=== PATIENT | female | born 1940 | race Caucasian/White ===

== ENCOUNTER 2017-02-10 10:44 | Inpatient (IN) ==
[2017-02-10] MEDS ORDERED: *HR* FentaNYL (PF) 100 MCG/2 ML VIAL IVP ONE (11:19)
[2017-02-10] MEDS ORDERED: Ondansetron 4 MG/2 ML VIAL IVP ONE (11:23)
--- NOTE | 2017-02-10 11:24 | Emergency Department Note ---
Disposition Clinical Impression: Hematoma Disposition: Admitted As Inpatient Condition: Good Extremity Problem HPI - General Chief complaint: ED Extremity Problem,Nontraumatic Stated complaint: LUE Pain / Swelling from UC Time Seen by Provider: 02/10/17 10:49 Source: patient, family Limitations: no limitations Nursing Notes Reviewed: Yes Vital Signs Reviewed: Yes - History of Present Illness HPI Narrative: 76-year-old female presents to the emergency department with a chief complaint of swelling and pain in the left upper extremity. Earlier today she had a blood draw for general blood work. She noticed her left arm with swelling in the biceps area became very painful. She is on Plavix due to heart disease. She had shoulder replacement surgery on that side about a year ago. She states her entire bicep till swollen and is tender. She denies any numbness or tingling distally. She denies any weakness. She states her blood pressure is very high but not take her blood pressure medication this morning. She denies any pain in the neck. She denies any other complaints or concerns. Pain Scale: 10 - Related Data Home Medications Medication Instructions Recorded Confirmed Ascorbate Calcium [Vitamin C] 1,000 mg PO DAILY 09/02/16 02/10/17 Aspirin 81 mg PO DAILY 09/02/16 02/10/17 Atorvastatin Calcium [Lipitor] 80 mg PO HS 09/02/16 02/10/17 Cholecalciferol (D-3) [Vitamin D] 1,000 unit PO DAILY 09/02/16 02/10/17 Clopidogrel [Plavix] 75 mg PO DAILY 09/02/16 02/10/17 Lisinopril [Zestril] 40 mg PO DAILY 09/02/16 02/10/17 Metoprolol [Lopressor] 50 mg PO DAILY 09/02/16 02/10/17 Vitamin E Acid Succinate [Vitamin 400 units PO DAILY 09/02/16 02/10/17 E] Allergies Allergy/AdvReac Type Severity Reaction Status Date / Time propoxyphene Allergy Vomiting Verified 02/10/17 11:25 [From Mayra] fenofibrate AdvReac See Verified 02/10/17 11:25 Comments All systems ED: reviewed and negative except as stated. Cardiovascular: Denies: chest pain Respiratory: Denies: dyspnea Neurological: Denies: weakness, numbness Past Medical History - Past Medical History Attestation: Yes The following information was validated with the patient. Medical history: Reports: cancer, hyperlipidemia, hypertension, myocardial infarction, other Surgical history: Reports: other Psychiatric history: Reports: no psych history - Social History Smoking Status: Unknown if ever smoked Smokeless Tobacco Status: No Alcohol use: Reports: occasionally Drug use: Reports: none Physical Exam General: Appears well, alert and oriented x 3 Cardiovascular: Regular rate and rhythm. Respiratory: Breath sounds clear bilaterally. Neck: No swelling of the neck Neuro: 5/5 strength at the elbow and wrist bilaterally. Normal managing principal strength bilaterally Vascular: She has strong, 2+ radial pulses bilaterally with normal capillary refill. She has normal color and temperature bilaterally in the hands and arm. Musculoskeletal: There is diffuse tense swelling from the anterior AC fossa three quarters [address] way to the left shoulder. It is very tight and tender. There is no swelling into the tricep. This is asymmetric on the other side. She has a small vena puncture scooter in the fossa. There is no swelling distally. There is no circumferential swelling. Skin: No lesions. No diaphoresis. Normal turgor. Normal color - General Limitations: no limitations General appearance: alert, in no apparent distress Course Course Narrative: At this time appears the patient is bleeding from her vena puncture into the biceps muscle and surrounding tissue. There is no sign of compartment syndrome at this time. She is neurovascularly intact. I spoke with the orthopedic surgeon, Dr. Weeks who recommends pressure to the area, admission for neuro checks. Patient is on Plavix obviously contributing to the ongoing bleeding into the tissue. We will control her pain as well as provide her home medications for blood pressure because she had not taken this morning. Her blood pressure was quite elevated but I suspected decrease with her medications and pain control. Vital Signs Temperature 97.7 F 02/10/17 10:48 Pulse Rate 111 02/10/17 10:48 Respiratory Rate 18 02/10/17 10:48 Blood Pressure 224/128 02/10/17 10:48 O2 Sat by Pulse Oximetry 97 02/10/17 10:48 Temperature 98.3 F 02/11/17 10:43 Pulse Rate 65 02/11/17 10:43 Respiratory Rate 14 02/11/17 10:43 Blood Pressure 98/57 02/11/17 10:43 O2 Sat by Pulse Oximetry 96 02/11/17 10:43 Oxygen Delivery Oxygen Delivery Room Air Extremity Problem, Nontraumati - Lab Data Result diagrams: 02/11/17 04:59 Attestation Statement - Attestation Attestation: I examined this patient and my medical decision-making was reviewed with the TELEMEDICINE PHYSICIAN/PA/Advanced Practice Nurse/Resident Physician. I agree with the documented findings, disposition and treatment plan as described except to the extent set forth below. 76-year-old female with history of coronary disease and coronary stents currently on Plavix presents to the ED due to traumatic venipuncture in the left arm. She was at an outlying phlebotomy site when she apparently had infiltration of the antecubital vein prompting evolution of a large and very tender hematoma. She was seen by a physician at the site and sent to the ED for possible compartment syndrome. She has. Faint tingling of the hand but no weakness. No pain distal to the hematoma. Denies any other complaints. Patient appears relatively comfortable she is hypertensive. Abdomen soft nontender chest clear bilaterally. No hematoma in the axilla. Left upper extremity there is a large and fairly tender hematoma over the anterior biceps region. The skin is tense to palpation. She does have range of motion of the elbow and is able to flex her arm without severe pain. Passive extension of the arm does increase some pain. Distal pulses of the hand are brisk. Capillary refill less than 2 seconds. Normal sensation throughout all dermatomes of the hand. She was seen in the ED by orthopedics who recommended observation with frequent neuro checks. Comparison of is unlikely in the upper arm however, she has had reconstruction of her shoulder which would put her at higher risk.
[2017-02-10] MEDS: Lisinopril 20 MG TABLET PO SCH (11:49)
[2017-02-10] MEDS ORDERED: Naloxone 0.4 MG/ML INJ IVP PRN (13:09)
--- NOTE | 2017-02-10 13:16 | Internal Med History&Physical ---
Date of Encounter: 02/10/17 Time of Encounter: 12:30 Assessment and Plan (1) Hematoma Current visit: Yes Status: Acute Hematoma of the left upper extremity related to peripheral venipuncture. Orthopedics has been consulted due to the severity of the hematoma. We will observe patient in the hospital and monitor for neurovascular compromise. Monitor blood counts. (2) Essential hypertension Current visit: Yes Status: Acute Uncontrolled. Resume home medications. Monitor blood pressure closely (3) Coronary artery disease Current visit: Yes Status: Chronic Continue home medications for this but will hold Plavix due to acute bleeding. Patient's last stent was about 15 years back Qualifiers: Coronary Disease-Associated Artery/Lesion type: [place] artery [place] vs. transplanted heart: [place] heart Associated angina: without angina Qualified Code(s): I25.10 - Atherosclerotic heart disease of [place] coronary artery without angina pectoris Internal Medicine - H&P: HPI Chief complaint: Left upper extremity swelling after venipuncture Admitted From: Emergency Dept Plans for Post Hospital Care: Home History of present illness: Ms. Smith is a 76 year old female patient with history of essential hypertension, coronary artery disease status post cardiac stents about 15 years back who takes aspirin and Plavix presented to the ER with complaints of swelling and redness following venipuncture off her left arm that was done for regular blood work. Soon after the procedure was done, she was developing significant swelling in the left arm above the elbow. She denies any numbness or weakness in her left upper extremity. She does have pain in this region as result of the swelling. She has never had episodes of excessive bleeding or bruising before. Past Med Surg Social Fam HX - Past Medical History Attestation: Yes The following information was validated with the patient. Source: patient Medical history: cancer, hyperlipidemia, hypertension, myocardial infarction, other Psychiatric history: no psych history - Past Surgical History Surgical History: other - Social History Smoking Status: Unknown if ever smoked Smokeless Tobacco Status: No Alcohol use: occasionally Drug use: none - Additional Family History Additional family history: Reviewed and found to be noncontributory at this time Internal Medicine - H&P: Meds Ascorbate Calcium [Vitamin C] 1,000 mg PO DAILY 09/02/16 [History] Aspirin 81 mg PO DAILY 09/02/16 [History] Atorvastatin Calcium [Lipitor] 80 mg PO HS 09/02/16 [History] Cholecalciferol (D-3) [Vitamin D] 1,000 unit PO DAILY 09/02/16 [History] Clopidogrel [Plavix] 75 mg PO DAILY 09/02/16 [History] Lisinopril [Zestril] 40 mg PO DAILY 09/02/16 [History] Metoprolol [Lopressor] 50 mg PO DAILY 09/02/16 [History] Vitamin E Acid Succinate [Vitamin E] 400 units PO DAILY 09/02/16 [History] Allergies propoxyphene [From Darvocet-N] Allergy (Verified 02/10/17 11:25) Vomiting fenofibrate Adverse Reaction (Verified 02/10/17 11:25) See Comments bruising All Systems PM: A 10-system review of systems was performed and is negative for pertinent findings except as documented above in the HPI. - Constitutional Constitutional: no chills, no fever(s), no night sweats - EENT Eyes: no change in vision, no discharge, no pain, no photophobia Ears: no ear discharge, no ear pain, no tinnitus Nose, mouth and throat: no dysphagia, no nasal discharge, no neck pain, no sore throat - Cardiovascular Cardiovascular ROS IM: no chest pain, no diaphoresis, no dyspnea, no lightheadedness, no palpitations, no syncope - Respiratory Respiratory: no cough, no dyspnea, no wheezing, no excessive phlegm production - Gastrointestinal Gastrointestinal: no abdominal pain, no diarrhea, no hematemesis, no hematochezia, no melena, no nausea, no vomiting - Genitourinary Genitourinary: no change in urinary stream, no dysuria, no flank pain, no hematuria - Musculoskeletal Musculoskeletal ROS IM: no numbness, no tingling - Integumentary Integumentary IM: no rash, no unusual bruising - Neurological Neurological ROS: no confusion, no convulsions, no focal weakness, no numbness, no tingling, no tremor(s) - Hematologic/Lymphatic Hematologic/Lymphatic: no easy bruising Additional comments: Swelling and bruising of the left upper extremity following venipuncture today - Constitutional Vitals: Temp Pulse Resp BP Pulse Ox 97.7 F 82 16 165/102 97 02/10/17 10:48 02/10/17 12:18 02/10/17 12:59 02/10/17 12:59 02/10/17 10:48 General appearance: Present: cooperative, mild distress, A&O X 3, answers questions appropriately - Neck Neck exam general surgery: Present: supple, trachea midline. Absent: lymphadenopathy - Respiratory Respiratory exam: Present: CTAB. Absent: accessory muscle use, rales, rhonchi, wheezes - Cardiovascular Cardiovascular exam: Present: RRR, +S1, +S2. Absent: diastolic murmur, gallop, rubs, systolic murmur - GI/Abdominal GI/Abdominal exam: Present: normal bowel sounds, soft, no peritoneal signs. Absent: distended, tenderness - Extremities Exam Extremities exam: Present: warm, radial pulses palpable and symetrical. Absent : calf tenderness, cyanotic, pedal edema Additional comments: Swelling of the left upper extremity just above the elbow. Currently with bandage with compressive bandage. She has good strength and sensation in the left upper extremity. Good pulses. - Neurological Exam Neurological exam: Present: alert, oriented X3, no focal deficits, strengths equal and symetr throughout. Absent: facial droop, speech deficit - Skin Skin exam: Present: dry, intact - Attending Attestation This document has been at least partially created by [employer] recognition technology by Dr. Valdez. Errors in grammar, wording or other phrases may exist. If errors are found after the documentation is signed, they will be addressed individually in the addendum section of this document when appropriate.
--- NOTE | 2017-02-10 13:26 | Orthopedic Consult Note ---
Date of Encounter: 02/10/17 Time of Encounter: 13:10 Assessment and Plan (1) Hematoma Current Visit: Yes Status: Acute Continue with pressure dressing. Apply warm compresses to antecubital fossa. Elevate extremity. ROM as tolerated. Continue to monitor with neuro checks. Dr. Weeks will re-evaluation tomorrow. History of Present Illness Chief complaint: left arm swelling HPI: Ms. Smith is a 76 year old female who presented to the ER today for left upper arm swelling and pain that started after a routine blood draw this morning. She is on plavix and aspirin. The pain has been increasing since then and described as throbbing in elbow radiating up towards shoulder. Denies any numbness or tingling in the extremity. Denies any chest pain, SOB, fevers. Denies any previous trouble with bleeding or bruising. She did admit that she did not take her blood pressure medicine this morning and that is why her BP is high now. She did receive her regular BP medicine while in the ER. Past Med Surg Social Fam HX - Past Medical History Medical history: cancer, hyperlipidemia, hypertension, myocardial infarction, other Psychiatric history: no psych history - Past Surgical History Surgical History: other - Social History Smoking Status: Unknown if ever smoked Smokeless Tobacco Status: No Alcohol use: occasionally Drug use: none - Family History Father Hx Family Cardiac Disorders: Yes Brother Hx Family Cardiac Disorders: Yes Medications and Allergies Ascorbate Calcium [Vitamin C] 1,000 mg PO DAILY 09/02/16 [History] Aspirin 81 mg PO DAILY 09/02/16 [History] Atorvastatin Calcium [Lipitor] 80 mg PO HS 09/02/16 [History] Cholecalciferol (D-3) [Vitamin D] 1,000 unit PO DAILY 09/02/16 [History] Clopidogrel [Plavix] 75 mg PO DAILY 09/02/16 [History] Lisinopril [Zestril] 40 mg PO DAILY 09/02/16 [History] Metoprolol [Lopressor] 50 mg PO DAILY 09/02/16 [History] Vitamin E Acid Succinate [Vitamin E] 400 units PO DAILY 09/02/16 [History] Allergies propoxyphene [From Darvocet-N] Allergy (Verified 02/10/17 11:25) Vomiting fenofibrate Adverse Reaction (Verified 02/10/17 11:25) See Comments bruising All Systems Reviewed: A 10-system review of systems was performed and is negative for pertinent findings except as documented above in the HPI. - Constitutional Constitutional: as per HPI - Cardiovascular Cardiovascular: as per HPI - Respiratory Respiratory: as per HPI - Musculoskeletal Musculoskeletal: as per HPI Physical Exam - Constitutional Vitals: Temp Pulse Resp BP Pulse Ox 97.7 F 82 16 165/102 97 02/10/17 10:48 02/10/17 12:18 02/10/17 12:59 02/10/17 12:59 02/10/17 10:48 - Elbow left Location of pain elbow: anterior (Eccymosis and swelling are noted to antecubital fossa and is swollen proximally to biceps on anterior side. No swelling noted to proximal side. No erythema at this time. No open wounds. Tenderness to palpation of the biceps area. Full ROM of shoulder, elbow and wrist/hand. brisk cap refill. NV intact) Results - Labs Labs: All other labs normal. Consult Discharge Plan - Plan Referrals: Crispin Gore MD [Primary Care Provider] -
[2017-02-10] MEDS: Acetaminophen 325 MG TABLET PO PRN ×2 (13:52→20:07)
[2017-02-10] MEDS ORDERED: *HR* OxyCODONE/APAP 5/325 TABLET PO PRN (14:59)
[2017-02-11 05:26] LABS: Basophils % 0.6 %; Eosinophils # 0.1 K/mcL (0.0-0.6); Eosinophils % 2.5 %; Hematocrit 31.1 % (35.3-44.9); Immature Granulocytes % 0.2 % (0-4); Lymphocytes # 2.2 K/mcL (0.6-4.6); Lymphocytes % 41.3 %; Mean Corpuscular HGB Conc 33.1 g/dL (31.6-35.5); Mean Corpuscular Hemoglobin 29.9 pg (28.0-33.3); Mean Corpuscular Volume 90.1 fL (83.0-100.0); Monocytes # 0.3 K/mcL (0.0-1.3); Monocytes % 6.5 %; Neutrophils # 2.6 K/mcL (1.6-8.9); Platelet Count 163 K/mcL (140-400); Red Blood Count 3.45 M/mcL (3.82-4.97); Red Cell Distribution Width 13.5 % (11.5-14.5); Segmented Neutrophils % 48.9 %
[2017-02-11 05:29] LABS: Hemoglobin 10.3 g/dL (11.5-15.4)
[2017-02-11] MEDS: Acetaminophen 325 MG TABLET PO PRN ×3 (06:37→20:19)
[2017-02-11] MEDS: Lisinopril 20 MG TABLET PO SCH (08:27)
[2017-02-11] MEDS: Cholecalciferol (D-3) 1,000 UNIT TABLET PO SCH (08:27)
[2017-02-11] MEDS: Aspirin 81 MG TAB.CHEW PO SCH (08:27)
[2017-02-11] MEDS ORDERED: Lisinopril 20 MG TABLET PO SCH (09:00)
--- NOTE | 2017-02-11 14:10 | Orthopedics Progress Note ---
Date of Encounter: 02/11/17 Time of Encounter: 14:07 - Assessment and Plan (1) Hematoma Current Visit: Yes Status: Acute Hematoma has increased slightly. The patient's hemoglobin has also dropped. There is no clinical signs for a compartment syndrome. Unclear if the damaged vessel is still bleeding or not. I recommend obtaining a Doppler study of the left upper extremity. If there is no signs of active bleeding, the patient can be discharged and follow up in office on Monday. Subjective Principal diagnosis: Left elbow hematoma Interval history: Patient reports she is doing well. Still has discomfort in the upper arm. Reports no numbness tingling in the hand Left upper extremity: Levar wrap was removed, there is minimal swelling in the hand and forearm. 4 cm area of ecchymosis in the antecubital fossa with swelling of the arm area. Soft tissue in the upper arm is minimally tendons. There is increased ecchymosis in the axilla. She has mild stiffness of the shoulder and elbow, good motion of the wrist and digits. Radial pulses 2+. Normal sensation in the hand. Objective Vital signs: Vital Signs Temp Pulse Resp BP Pulse Ox 02/11/17 10:43 98.3 F 65 14 98/57 96 02/11/17 08:00 96 02/11/17 06:31 97.9 F 76 14 117/68 96 02/11/17 00:04 98.5 F 75 16 133/78 95 02/10/17 20:49 98.8 F 77 16 139/79 95 Intake and Output 02/10/17 02/11/17 02/11/17 23:59 07:59 15:59 Intake Total 240 / 240 Balance 240 / 240 Intake: Oral 240 / 240 Other: Meal Lunch Percent of Meal Consumed 0% # Voids 1 Weight 45.2 kg Patient Weight 02/11/17 23:59 Weight 45.2 kg - Labs CBC & BMP: 02/11/17 04:59 Labs: Abnormal lab results RBC 3.45 M/mcL (3.82-4.97) L 02/11/17 04:59 Hgb 10.3 g/dL (11.5-15.4) L D 02/11/17 04:59 Hct 31.1 % (35.3-44.9) L 02/11/17 04:59 Consult Discharge Plan - Plan Referrals: Crispin Gore MD [Primary Care Provider] - 08/07/17 8:00 am
--- NOTE | 2017-02-11 16:11 | Internal Med Progress Note ---
Date of Encounter: 02/11/17 Time of Encounter: 11:40 - Assessment and plan (1) DVT (deep venous thrombosis) Current Visit: Yes Status: Acute Assessment and plan: Patient was admitted for hematoma to left antecubital fossa after peripheral blood draw. Patient has it wrapped with an Levar wrap. She has been keeping it elevated. She was seen by Dr. Bonilla. Doppler was ordered today. Patient states that it actually looks and feels worse than it did yesterday. Left upper extremity is warm and hardened, there is a golf ball sized hematoma in the antecubital fossa. She does have adequate range of motion and has normal sensory perception, palpable radial pulse to left arm. Doppler shows acute thromboses in both the left brachial and left basilic veins. I have consult to Dr. Peguero. Hemoglobin has also decreased to 10.3 from 12.4 yesterday. Standard dose heparin protocol started. Qualifiers: DVT location: upper extremity Affected thrombotic vein of extremity: brachial Laterality: left Chronicity: acute Qualified Code(s): I82.622 - Acute embolism and thrombosis of deep veins of left upper extremity (2) Hematoma Current Visit: Yes Status: Acute Assessment and plan: Hematoma originally to left upper extremity from peripheral venipuncture yesterday. Plan as above (3) Essential hypertension Current Visit: Yes Status: Chronic Assessment and plan: Chronic. Continue home medications. Monitor vital signs. (4) Coronary artery disease Current Visit: Yes Status: Chronic Assessment and plan: Chronic. Patient denies chest pain. Patient has been on Plavix. History of stents. We will continue home medications. Qualifiers: Coronary Disease-Associated Artery/Lesion type: [place] artery [place] vs. transplanted heart: [place] heart Associated angina: without angina Qualified Code(s): I25.10 - Atherosclerotic heart disease of [place] coronary artery without angina pectoris - Time Spent With Patient less than 15 minutes - Subjective Interval history: Patient resting quietly in room, granddaughter at bedside. I unwrapped the arm. There is a large golf ball sized hematoma to left before meals. Left upper extremity is hard and swollen. No redness. Patient states that at that actually looks worse and feels worse than it did yesterday. Patient still has palpable radial pulses bilaterally. Dr. Wilson evaluated patient again today and order Doppler study. Both left brachial and left basilic veins have acute thromboses. Dr. Wilson is aware, I have paged vascular and will discuss case with them. Consult is in. - Constitutional Vitals: Temp Pulse Resp BP Pulse Ox 98.2 F 62 18 155/80 98 02/11/17 15:33 02/11/17 15:33 02/11/17 15:33 02/11/17 15:33 02/11/17 15:33 General appearance: Present: cooperative, mild distress, A&O X 3, pleasant, answers questions appropriately - Head Head exam: Present: normal inspection - Eye Eye exam: Present: normal appearance, conjuntiva pink - ENT ENT exam: Present: mucous membranes moist, normal exam, normal external ear exam - Neck Neck exam general surgery: Present: normal inspection. Absent: lymphadenopathy , tenderness - Respiratory Respiratory exam: Present: CTAB. Absent: respiratory distress, rhonchi, stridor , wheezes - Cardiovascular Cardiovascular exam: Present: RRR, +S1, +S2. Absent: diastolic murmur, systolic murmur - Expanded Cardiovascular Exam Peripheral pulses: 2+: Dorsalis Pedis (L) PM, Dorsalis Pedis (R) PM - GI/Abdominal GI/Abdominal exam: Present: normal bowel sounds, soft. Absent: hepatomegaly, tenderness - Extremities Exam Extremities exam: Present: normal capillary refill, normal inspection, warm, radial pulses palpable and symetrical. Absent: pedal edema, tenderness - Neurological Exam Neurological exam: Present: alert, normal gait, oriented X3, no focal deficits, strengths equal and symetr throughout. Absent: pronater drift, facial droop, speech deficit Internal Medicine: Result - Labs CBC & Chem 7: 02/11/17 04:59 Labs: Short CBC 02/11/17 Range/Units 04:59 WBC 5.2 (4.3-11.1) K/mcL Hgb 10.3 L D (11.5-15.4) g/dL Hct 31.1 L (35.3-44.9) % Plt Count 163 (140-400) K/mcL Neutrophils # 2.6 (1.6-8.9) K/mcL Consult Discharge Plan - Plan Referrals: Crispin Gore MD [Primary Care Provider] - 08/07/17 8:00 am
[2017-02-11] MEDS ORDERED: *HR* Heparin 5,000 UNIT/ML VIAL IVP ONE (16:27)
[2017-02-11] MEDS ORDERED: *HR* Heparin 5,000 UNIT/ML VIAL IVP PRN ×2 (16:27)
[2017-02-11] MEDS ORDERED: Heparin 25,000 UNIT/500 ML D5W 25,000 UNIT/500 ML MLS IVC SCH (16:30)
[2017-02-11 17:10] LABS: Hematocrit 32.9 % (35.3-44.9); Hemoglobin 10.6 g/dL (11.5-15.4); Mean Corpuscular HGB Conc 32.2 g/dL (31.6-35.5); Mean Corpuscular Hemoglobin 29.4 pg (28.0-33.3); Mean Corpuscular Volume 91.1 fL (83.0-100.0); Mean Platelet Volume 10.6 fL (9.4-12.4); Platelet Count 172 K/mcL (140-400); Red Blood Count 3.61 M/mcL (3.82-4.97); Red Cell Distribution Width 13.2 % (11.5-14.5)
[2017-02-11 17:15] LABS: INR 1.1; Prothrombin Time 11.5 Seconds (9.4-12.1)
[2017-02-11 17:18] LABS: Activated Partial Thrombo Time 29.5 Seconds (26.0-36.0)
[2017-02-12] MEDS: Acetaminophen 325 MG TABLET PO PRN (02:11)
[2017-02-12] MEDS: Aspirin 81 MG TAB.CHEW PO SCH (08:03)
[2017-02-12] MEDS: Lisinopril 20 MG TABLET PO SCH (08:03)
[2017-02-12] MEDS: Cholecalciferol (D-3) 1,000 UNIT TABLET PO SCH (08:03)
[2017-02-12 10:08] LABS: Basophils % 0.2 %; Eosinophils # 0.1 K/mcL (0.0-0.6); Eosinophils % 2.7 %; Hematocrit 32.5 % (35.3-44.9); Hemoglobin 10.5 g/dL (11.5-15.4); Immature Granulocytes % 0.2 % (0-4); Lymphocytes # 1.9 K/mcL (0.6-4.6); Lymphocytes % 39.1 %; Mean Corpuscular HGB Conc 32.3 g/dL (31.6-35.5); Mean Corpuscular Hemoglobin 29.3 pg (28.0-33.3); Mean Corpuscular Volume 90.8 fL (83.0-100.0); Mean Platelet Volume 10.2 fL (9.4-12.4); Monocytes # 0.4 K/mcL (0.0-1.3); Monocytes % 7.6 %; Neutrophils # 2.4 K/mcL (1.6-8.9); Platelet Count 170 K/mcL (140-400); Red Blood Count 3.58 M/mcL (3.82-4.97); Red Cell Distribution Width 13.3 % (11.5-14.5); Segmented Neutrophils % 50.2 %
--- NOTE | 2017-02-12 10:12 | Venous Imaging Report ---
UE Venous Duplex Patient Name:Ene Smith Order Number:[id number] Procedure Date:02/11/2017 Date:1940Age:76 yrs Gender:Female Location:[facility] Room #: [id number] Drop Wire Operator:Cinda Castillo RVT, EDUARDO Referring MD:David Weeks MD jd edwards consultant:Crispin Gore MD Reading MD:Larry Lawton MD , FACS Primary Indications:blood clot Secondary Indications: Risk Factors Yes/No Hx of DVT No Impressions: Upper extremity abnormal deep exam: left Brachial vein acute thrombosis. Upper extremity abnormal superficial exam: left Basilic vein acute thrombosis. Right upper extremity: normal contralateral exam. Recommendations: Test completed on 02/11/2017 at 3:47:56 pm. Critical findings reported to Dr. Weeks by phone at 3:48:08 pm on 02/11/2017 by Cinda Castillo RVT, EDUARDO. Findings Venous Duplex Results: Right: Venous imaging of the upper extremity reveals full patency and normal vessel compressibility of the right subclavian. Doppler signals in the evaluated veins were normal. Left: Venous imaging of the upper extremity reveals full patency and normal vessel compressibility of the left jugular, left subclavian, left axillary, left cephalic, left basilic forearm, left radial and left ulnar. Doppler signals in the evaluated veins were normal. There is an acute occlusive thrombus seen in the left brachial. It demonstrates an incompressible vein. Flow was absent and it did not augment. There is an acute partially occlusive thrombus seen in the left basilic upper arm. It demonstrates a partially compressible vein. Flow was phasic and it did augment. Upper Extremity Venous Duplex Side Vein Compress Spontaneous Flow Augment Left Jugular Normal Yes Phasic Yes Left Subclavian Normal Yes Phasic Yes Left Axillary Normal Yes Phasic Yes Left Brachial None no Absent no Left Cephalic Normal Yes Phasic Yes Left Basilic Forearm Normal Yes Phasic Yes Left Radial Normal Yes Phasic Yes Left Ulnar Normal Yes Phasic Yes Right Subclavian Normal Yes Phasic Yes Left Basilic Upper Arm Partial yes Phasic yes Updated by Larry Lawton MD, FACS on 02/12/2017 10:07:00 AM Larry Lawton MD electronically signed on 02/12/2017 10:07:23 AM with status of Final
--- NOTE | 2017-02-12 10:51 | Internal Med Progress Note ---
Date of Encounter: 02/12/17 Time of Encounter: 10:47 - Assessment and plan (1) Hematoma Current Visit: Yes Status: Acute Assessment and plan: Hematoma originally to left upper extremity from peripheral venipuncture . has shrinked in size as per the daughter. will continue to monitor. (2) Essential hypertension Current Visit: Yes Status: Chronic Assessment and plan: Chronic. Continue home medications. Monitor vital signs. (3) DVT (deep venous thrombosis) Current Visit: Yes Status: Acute Assessment and plan: Patient was admitted for hematoma to left antecubital fossa after peripheral blood draw. Patient has it wrapped with an Levar wrap. She has been keeping it elevated. She was seen by Dr. Bonilla. Doppler was ordered which shows acute thromboses in both the left brachial and left basilic veins. Dr. Peguero was consulted yesterday. Hemoglobin stable today. will possible start xarelto today and stop the heparin drip. Qualifiers: DVT location: upper extremity Affected thrombotic vein of extremity: brachial Laterality: left Chronicity: acute Qualified Code(s): I82.622 - Acute embolism and thrombosis of deep veins of left upper extremity (4) Coronary artery disease Current Visit: Yes Status: Chronic Assessment and plan: Chronic. Patient denies chest pain. Patient has been on Plavix. History of stents. We will continue home medications. Qualifiers: Coronary Disease-Associated Artery/Lesion type: [place] artery [place] vs. transplanted heart: [place] heart Associated angina: without angina Qualified Code(s): I25.10 - Atherosclerotic heart disease of [place] coronary artery without angina pectoris - Subjective Interval history: seen at the bedside , reports mild pain and swelling at the left cubital fossa. admitted for hematoma 2/2 peripheral venous blood draw. venous doppler shows thrombus in left basilic veins, has been started on heparin drip. - Constitutional Vitals: Temp Pulse Resp BP Pulse Ox 97.8 F 76 16 145/81 95 02/12/17 07:59 02/12/17 07:59 02/12/17 07:59 02/12/17 07:59 02/12/17 08:00 General appearance: Present: cooperative, A&O X 3, pleasant, answers questions appropriately Exam: - Head Head exam: Present: normal inspection - Eye Eye exam: Present: normal appearance, conjuntiva pink - ENT ENT exam: Present: mucous membranes moist, normal exam, normal external ear exam - Neck Neck exam general surgery: Present: normal inspection. Absent: lymphadenopathy , tenderness - Respiratory Respiratory exam: Present: CTAB. Absent: respiratory distress, rhonchi, stridor , wheezes - Cardiovascular Cardiovascular exam: Present: RRR, +S1, +S2. Absent: diastolic murmur, systolic murmur - GI/Abdominal GI/Abdominal exam: Present: normal bowel sounds, soft. Absent: hepatomegaly, tenderness - Extremities Exam Extremities exam: Present: normal capillary refill, normal inspection, warm, radial pulses palpable and symetrical. left arm has a antecubital hematoma with swelling and tenderness, no signs of compartment syndrome. Absent: pedal edema , tenderness - Neurological Exam Neurological exam: Present: alert, normal gait, oriented X3, no focal deficits, strengths equal and symetr throughout. Absent: pronater drift, facial droop, speech deficit Internal Medicine: Result - Labs CBC & Chem 7: 02/12/17 07:31 Labs: Short CBC 02/11/17 02/12/17 Range/Units 16:53 07:31 WBC 5.0 4.7 (4.3-11.1) K/mcL Hgb 10.6 L 10.5 L (11.5-15.4) g/dL Hct 32.9 L 32.5 L (35.3-44.9) % Plt Count 172 170 (140-400) K/mcL Neutrophils # 2.4 (1.6-8.9) K/mcL - ABG Interpretation ABG results: PT/INR, D-dimer PT 11.5 Seconds (9.4-12.1) 02/11/17 16:53 Consult Discharge Plan - Plan Referrals: Crispin Gore MD [Primary Care Provider] - 08/07/17 8:00 am
--- NOTE | 2017-02-12 11:08 | Vascular/Endovasc Consult Note ---
Date of Encounter: 02/12/17 Time of Encounter: 11:04 Assessment and Plan (1) Hematoma Current Visit: Yes Status: Acute Left antecubital hematoma appears to be self-contained at this time. It is a non -pulsatile mass and there is no signs of active bleeding. This can be managed expectantly with elevation and application of heat. (2) DVT (deep venous thrombosis) Current Visit: Yes Status: Acute Acute left brachial vein deep venous thrombosis and superficial thrombophlebitis of the basilic vein. I would recommend conversion to oral anticoagulation. I would treat the patient for approximately 3 months and then repeat duplex scan. If the duplex scan is negative I would then discontinue anticoagulation. It is permissible for the patient to be up and to walk. Qualifiers: DVT location: upper extremity Affected thrombotic vein of extremity: brachial Laterality: left Chronicity: acute Qualified Code(s): I82.622 - Acute embolism and thrombosis of deep veins of left upper extremity - History of Present Illness Consult date: 02/12/17 Consult reason: Left upper extremity DVT Chief complaint: Left arm swelling History of present illness: Ms. Smith is a 76 year old female Who was admitted 2 days ago on Monday after a complication following phlebotomy. The patient was on the [facility] for a routine blood draw. There was difficulty obtaining blood from a left antecubital puncture. The patient and went on to have a puncture in the right antecubital area 2 and the blood was finally obtained. The patient developed a significant swelling and discoloration of the left antecubital area. She was recommended to come to the emergency room and she was admitted. She was seen in consultation and admitted by the hospitalist service and was also seen by the orthopedic surgery service (Dr. Bonilla). The patient had a venous duplex scan performed yesterday afternoon. I reviewed the images. They demonstrate a acute thrombus in the left brachial vein and in the left basilic vein. There is no finding of an active arterial venous fistula or signs of active bleeding. Hematoma-like structure was identified on the venous ultrasound consistent with the patient's history and physical findings. Patient has had no previous similar symptoms. She is not on any anticoagulation. She does take antiplatelet agents for coronary artery disease. She has no known coagulopathy or thrombophilia. The patient states that her left arm is feeling better today. She feels the swelling is decreased. Past Med Surg Social Fam HX - Past Medical History Medical history: cancer, hyperlipidemia, hypertension, myocardial infarction, other Psychiatric history: no psych history - Past Surgical History Surgical History: other - Social History Smoking Status: Unknown if ever smoked Smokeless Tobacco Status: No Alcohol use: occasionally Drug use: none - Family History Father Hx Family Cardiac Disorders: Yes Brother Hx Family Cardiac Disorders: Yes Medications and Allergies Ascorbate Calcium [Vitamin C] 1,000 mg PO DAILY 09/02/16 [History] Aspirin 81 mg PO DAILY 09/02/16 [History] Atorvastatin Calcium [Lipitor] 80 mg PO HS 09/02/16 [History] Cholecalciferol (D-3) [Vitamin D] 1,000 unit PO DAILY 09/02/16 [History] Clopidogrel [Plavix] 75 mg PO DAILY 09/02/16 [History] Lisinopril [Zestril] 40 mg PO DAILY 09/02/16 [History] Metoprolol [Lopressor] 50 mg PO DAILY 09/02/16 [History] Vitamin E Acid Succinate [Vitamin E] 400 units PO DAILY 09/02/16 [History] Allergies propoxyphene [From Darvocet-N] Allergy (Verified 02/10/17 11:25) Vomiting fenofibrate Adverse Reaction (Verified 02/10/17 11:25) See Comments bruising All Systems Review: A 10-system review of systems was performed and is negative for pertinent findings except as documented above in the HPI. Exam Vital Signs, Last 4 Hours Temp Pulse Resp BP Pulse Ox 02/12/17 11:01 98.6 F 68 16 138/74 95 02/12/17 08:00 95 02/12/17 07:59 97.8 F 76 16 145/81 95 General: Present: Conversant, No Apparent Distress HEENT: Present: Atraumatic, Normocephaly, Trachea midline Neck: Absent: JVD, Midline deformity Neuro: Present: Alert and responsive, No focal deficits noted Vascular: Present: Normal capillary refill, Pulse, normal, Color/Temperature, Other (The patient has a raised soft mass at the left antecubital area. The patient has ecchymosis extending for a distance of approximately 5 cm. She also has an area of ecchymosis in the left axillary region. There is no edema of the upper extremities. The motion of the left elbow and hand and wrist is within normal limits. There are no signs of neurologic deficits.Of note there is ecchymosis at the right antecubital area where the patient had venipuncture as well. There is no swelling at this area however.). Absent: Clubbing, Cyanosis, Edema Consult Discharge Plan - Plan Referrals: Crispin Gore MD [Primary Care Provider] - 08/07/17 8:00 am
--- NOTE | 2017-02-12 14:47 | Orthopedics Progress Note ---
Date of Encounter: 02/12/17 Time of Encounter: 14:45 - Assessment and Plan (1) Hematoma Current Visit: Yes Status: Acute Hematoma is stable No flow into hematoma was noted on ultrasound. Continue gentle range of motion of left extremity Will sign off (2) DVT (deep venous thrombosis) Current Visit: Yes Status: Acute Anticoagulation as per hospitalist and vascular Qualifiers: DVT location: upper extremity Affected thrombotic vein of extremity: brachial Laterality: left Chronicity: acute Qualified Code(s): I82.622 - Acute embolism and thrombosis of deep veins of left upper extremity (3) Phlebitis Current Visit: Yes Status: Acute Use warm compresses Subjective Principal diagnosis: Left elbow hematoma Interval history: Patient reports she is doing well. Still has discomfort in the upper arm. Reports no numbness tingling in the hand Left upper extremity: 4 cm area of ecchymosis in the antecubital fossa with swelling of the arm area. Doppler studies showed DVT and left brachial vein, along with superficial phlebitis Objective Vital signs: Vital Signs Temp Pulse Resp BP Pulse Ox 02/12/17 11:01 98.6 F 68 16 138/74 95 02/12/17 08:00 95 02/12/17 07:59 97.8 F 76 16 145/81 95 02/12/17 04:22 97.8 F 75 12 146/77 95 02/12/17 01:04 98.2 F 67 14 147/75 99 02/11/17 19:05 98.3 F 76 16 112/65 96 Intake and Output 02/11/17 02/12/17 02/12/17 23:59 07:59 15:59 Intake Total 95.1 / 95.1 656 / 656 Balance 95.1 / 95.1 656 / 656 Intake: IV Fluids 95.1 / 95.1 176 / 176 Heparin 25,000 UNIT/500 95.1 / 95.1 176 / 176 ML D5W 25,000 unit In 500 ml @ 14 UNIT/KG/HR 12. 656 mls/hr IVC .Q24H JIMENA Rx#:[id number] Oral 480 / 480 Other: Meal Lunch Percent of Meal Consumed 100% - Labs CBC & BMP: 02/12/17 07:31 Labs: Abnormal lab results RBC 3.58 M/mcL (3.82-4.97) L 02/12/17 07:31 Hgb 10.5 g/dL (11.5-15.4) L 02/12/17 07:31 Hct 32.5 % (35.3-44.9) L 02/12/17 07:31 APTT 58.0 Seconds (26.0-36.0) H 02/12/17 13:22 Consult Discharge Plan - Plan Referrals: Crispin Gore MD [Primary Care Provider] - 08/07/17 8:00 am
[2017-02-12 15:26] VITALS: BP 138/73
--- NOTE | 2017-02-12 16:29 | Discharge Summary ---
Date of Encounter: 02/14/17 Time of Encounter: 16:27 - Discharge Diagnosis (1) Hematoma Priority: Primary Status: Acute (2) Essential hypertension Priority: Primary Status: Chronic (3) DVT (deep venous thrombosis) Priority: Primary Status: Acute Qualifiers: DVT location: upper extremity Affected thrombotic vein of extremity: brachial Laterality: left Chronicity: acute Qualified Code(s): I82.622 - Acute embolism and thrombosis of deep veins of left upper extremity (4) Coronary artery disease Priority: Secondary Status: Chronic Qualifiers: Coronary Disease-Associated Artery/Lesion type: [place] artery [place] vs. transplanted heart: [place] heart Associated angina: without angina Qualified Code(s): I25.10 - Atherosclerotic heart disease of [place] coronary artery without angina pectoris - Discharge Medications Prescriptions: Rivaroxaban [Xarelto] 15 mg PO BID 21 Days Rivaroxaban [Xarelto] 20 mg PO DAILY 30 Days Home Medications: Ascorbate Calcium [Vitamin C] 1,000 mg PO DAILY 09/02/16 [History] Aspirin 81 mg PO DAILY 09/02/16 [History] Atorvastatin Calcium [Lipitor] 80 mg PO HS 09/02/16 [History] Cholecalciferol (D-3) [Vitamin D] 1,000 unit PO DAILY 09/02/16 [History] Clopidogrel [Plavix] 75 mg PO DAILY 09/02/16 [History] Lisinopril [Zestril] 40 mg PO DAILY 09/02/16 [History] Metoprolol [Lopressor] 50 mg PO DAILY 09/02/16 [History] Vitamin E Acid Succinate [Vitamin E] 400 units PO DAILY 09/02/16 [History] Rivaroxaban [Xarelto] 15 mg PO BID 21 Days 02/12/17 [Rx] Rivaroxaban [Xarelto] 20 mg PO DAILY 30 Days 02/12/17 [Rx] Allergies/Adverse Reactions: Allergies propoxyphene [From Darvocet-N] Allergy (Verified 02/10/17 11:25) Vomiting fenofibrate Adverse Reaction (Verified 02/10/17 11:25) See Comments bruising Date of admission: 02/11/17 16:50 Primary care physician: Crispin Gore MD Discharging clinician: Tati Linton Anticipated date of discharge: 02/12/17 - Patient Status Disposition: Home, Self-Care Condition: Fair Functional capacity at discharge: independent ambulation Overall status at discharge: patient is back to baseline - Discharge Instructions Instructions: Rivaroxaban (By mouth), Deep Venous Thrombosis (DC) Follow Up With: Deirdre Kent PAC [Physician Is Consultant] - 02/13/17 11:00 am Crispin Gore MD [Primary Care Provider] - 08/07/17 8:00 am - Diet and Activity Activity: resume usual activities as tolerated Diet: advance to your usual diet Interval History: Patient was admitted for hematoma to left antecubital fossa after peripheral blood draw. She was seen by Dr. Bonilla. Doppler was ordered which shows acute thromboses in both the left brachial and left basilic veins. Dr. Peguero was consulted too.. Hemoglobin stable and the hematoma has improved. was started on xarelto for the acute thrombus as recommended by vascular. she will be dc today in stable condition and will f/u as OP. Hospital course: Ms. Smith is a 76 year old female - Time Spent with Patient Total time spent providing and/or coordinating discharge services: - Constitutional Vitals: Temp Pulse Resp BP Pulse Ox 97.9 F 66 16 138/73 95 02/12/17 15:26 02/12/17 15:26 02/12/17 15:26 02/12/17 15:26 02/12/17 15:26 General appearance: Present: cooperative, A&O X 3, pleasant, answers questions appropriately Exam: - Head Head exam: Present: normal inspection - Eye Eye exam: Present: normal appearance, conjuntiva pink - ENT ENT exam: Present: mucous membranes moist, normal exam, normal external ear exam - Neck Neck exam general surgery: Present: normal inspection. Absent: lymphadenopathy , tenderness - Respiratory Respiratory exam: Present: CTAB. Absent: respiratory distress, rhonchi, stridor , wheezes - Cardiovascular Cardiovascular exam: Present: RRR, +S1, +S2. Absent: diastolic murmur, systolic murmur - GI/Abdominal GI/Abdominal exam: Present: normal bowel sounds, soft. Absent: hepatomegaly, tenderness - Extremities Exam Extremities exam: Present: normal capillary refill, normal inspection, warm, radial pulses palpable and symetrical. left arm has a antecubital hematoma with swelling and tenderness, no signs of compartment syndrome. Absent: pedal edema , tenderness - Neurological Exam Neurological exam: Present: alert, normal gait, oriented X3, no focal deficits, strengths equal and symetr throughout. Absent: pronater drift, facial droop, speech deficit
== END 2017-02-12 17:03 | disposition home or self-care (01) | DRG 605 ==
LOC: EMEROO 10:44 → 3NENU 10:44 → SUATTDRO 12:50 → 3NENU 13:06
PROVIDERS: ADMIT Internal Medicine; ATTEND Internal Medicine